=== PATIENT | female | born 1965 | race Asian ===

== ENCOUNTER 2020-04-27 08:19 | Emergency (ER) | payer BC, OTHER ==
[2020-04-27 08:23] VITALS: BMI 24.5
[2020-04-27] MEDS ORDERED: METHOCARBAMOL 500 MG TABLET ONE (08:26)
[2020-04-27] MEDS ORDERED: KETOROLAC TROMETHAMINE 60 MG/2 ML VIAL ONE (08:26)
[2020-04-27] MEDS ORDERED: ACETAMINOPHEN 1000 MG/100 ML VIAL (NON FORMULARY) IVPB ONE (09:12)
[2020-04-27] MEDS ORDERED: ACETAMINOPHEN INJECTION 100 ML IVPB ONE (09:15)
[2020-04-27 09:41] LABS: BASO % 2.1 % (0-2.0); EOS % 6.3 % (0-4.5); HEMATOCRIT 42.4 % (32.4-45.2); HEMOGLOBIN 13.9 GM/dL (10.7-15.3); LYMPH % 38.8 % (8-40); MCH 30.6 pg (25.7-33.7); MCHC 32.7 g/dl (32.0-36.0); MEAN CELL VOLUME 93.4 fl (80-96); MEAN PLT VOLUME 8.1 fl (7.5-11.1); NEUT % 44.8 % (42.8-82.8); PLATELET COUNT 309 K/MM3 (134-434); RBC 4.54 M/mm3 (3.60-5.2); RDW 13.6 % (11.6-15.6); WHITE BLOOD COUNT 4.9 K/mm3 (4.0-10.0)
[2020-04-27 10:01] LABS: HCG,QUALITATIVE URINE Negative
[2020-04-27 10:04] LABS: POTASSIUM 3.8 mmol/L (3.5-5.1)
[2020-04-27 10:06] LABS: ALBUMIN 3.7 g/dl (3.4-5.0); BLOOD UREA NITROGEN 13.9 mg/dL (7-18); CALCIUM 9.5 mg/dL (8.5-10.1)
[2020-04-27 10:09] LABS: CREATININE 0.9 mg/dL (0.55-1.3)
[2020-04-27 10:11] LABS: BILIRUBIN,TOTAL 0.7 mg/dL (0.2-1); TOT PROT 7.6 g/dl (6.4-8.2)
[2020-04-27 10:14] LABS: URINE APPEARANCE CLEAR; URINE COLOR ORANGE; URINE GLUCOSE (UA) NEGATIVE (NEGATIVE)
[2020-04-27 10:15] LABS: URINE BILIRUBIN SMALL (NEGATIVE); URINE KETONE NEGATIVE (NEGATIVE); URINE LEUK ESTERASE 1+ (NEGATIVE); URINE NITRITE Positive (NEGATIVE); URINE PROTEIN NEGATIVE (NEGATIVE); URINE RBC 1.7 /uL (0-23.9); URINE WBC 2.9 /uL (0-25.8)
[2020-04-27 10:16] LABS: EPI CELLS 1.1 /uL (0-25.1); URINE BACTERIA 521.8 /uL (0-1359)
[2020-04-27 14:27] VITALS: BP 138/79; PULSE 82; TEMP 98.5
== END 2020-04-27 14:28 | disposition home or self-care (01) ==
LOC: JER 08:19
PROC: 3E033NZ Introduction of Analgesics, Hypnotics, Sedatives into Peripheral Vein, Percutaneous Approach (ICD-10-PCS; principal; 2020-04-27)
DX: K21.9 Gastro-esophageal reflux disease without esophagitis (principal); R10.13 Epigastric pain; N30.00 Acute cystitis without hematuria
CPT/HCPCS: 36415; 76705-TC; 76830-TC; 80053; 81003; 84703; 85025; 87086; 99284-25; J0131